=== PATIENT | female | born 1950 | race Caucasian/White ===

== ENCOUNTER 2018-11-10 06:33 | Day surgery (SDC) | payer OTHER ==
[2018-11-10] MEDS: SOD CHLORIDE 0.9% 1,000 ML IV (07:44)
[2018-11-10] MEDS ORDERED: CEFAZOLIN 2 GM/50 ML (PMX) 50 ML IVPB (08:00)
[2018-11-10] MEDS ORDERED: MEPERIDINE 25 MG INJ IV (08:00)
[2018-11-10] MEDS ORDERED: FENTAnyl 50 MCG/ML VIAL IV ×3 (08:00)
[2018-11-10] MEDS ORDERED: CEFAZOLIN 1 GM INJ (08:00)
[2018-11-10] MEDS ORDERED: OXYCODONE/ACETAMINOPHEN (5/325) TAB PO ×2 (08:00)
[2018-11-10] MEDS ORDERED: LIDOCAINE 2% (SDV) 5 ML INJ (08:00)
[2018-11-10] MEDS ORDERED: PROPOFOL 20 ML (08:00)
[2018-11-10] MEDS ORDERED: ONDANSETRON 4 MG INJ IV (08:00)
[2018-11-10] MEDS ORDERED: LABETALOL HCL 20MG INJ IV (08:00)
[2018-11-10] MEDS ORDERED: FENTAnyl 50 MCG/ML VIAL (08:48)
[2018-11-10] MEDS ORDERED: METOCLOPRAMIDE 10 MG INJ (08:49)
[2018-11-10] MEDS ORDERED: FAMOTIDINE 20 MG INJ (08:49)
[2018-11-10] MEDS ORDERED: ONDANSETRON 4 MG INJ (08:49)
[2018-11-10] MEDS: BUPIVACAINE 0.25% (MPF) 30 ML INJ (08:55)
[2018-11-10] MEDS ORDERED: HYDROCODONE/APAP (5/325) TAB PO (10:30)
[2018-11-11] MEDS ORDERED: INFLUENZA VIRUS VACCINE 0.5 ML (DISPENSING) IM* (09:00)
== END 2018-11-10 11:36 | disposition home or self-care (01) ==
LOC: SDS 06:33
DX: D21.0 Benign neoplasm of connective and other soft tissue of head, face and neck (principal); I10 Essential (primary) hypertension; E11.9 Type 2 diabetes mellitus without complications; E78.5 Hyperlipidemia, unspecified; E66.9 Obesity, unspecified
CPT/HCPCS: 14041; 82962; 88307

== ENCOUNTER 2018-11-21 22:30 | Inpatient (IN) | payer OTHER ==
[2018-11-22] MEDS ORDERED: NACL 0.9% 3 ML SYG IV
[2018-11-22] MEDS ORDERED: ONDANSETRON 4 MG INJ IV
[2018-11-22] MEDS ORDERED: ALBUTEROL/IPRATROPIUM (NEB) 3 ML AMP HHN
[2018-11-22] MEDS ORDERED: ACETAMINOPHEN 325 MG TAB PO
[2018-11-22] MEDS ORDERED: HYDROCODONE/APAP (5/325) TAB PO
[2018-11-22] MEDS: PIPER-TAZO 3.375 GM IV (PMX) 100 ML IVPB ×4 (00:32→17:22)
[2018-11-22] MEDS ORDERED: GLUCAGON 1 MG INJ IM (01:30)
[2018-11-22] MEDS ORDERED: GLUCOSE GEL 15 GRAM TUBE PO ×2 (01:30)
[2018-11-22] MEDS ORDERED: GLUCOSE GEL 15 GRAM TUBE BUCCAL (01:30)
[2018-11-22] MEDS ORDERED: DEXTROSE 50% 50 ML SYRINGE IV ×2 (01:30)
[2018-11-22] MEDS: ACCU-CHEK XX (02:00)
[2018-11-22] MEDS ORDERED: DORZOLAMIDE/TIMOLOL/PF 0.2 ML DROPERETTE BOTH EYES (02:00)
[2018-11-22] MEDS: VANCOMYCIN HCL 1.5 GM in SOD CHLORIDE 0.9% 250 ML IVPB (02:14)
[2018-11-22] MEDS: PANTOPRAZOLE (EC) 40 MG TAB PO (05:18)
[2018-11-22 07:10] LABS: ADD MAN DIFF? NO
[2018-11-22 07:13] LABS: BASOPHILS % 0.5 % (0.0-2.0); EOSINOPHILS # 0.4 10^3/ul (0.0-0.5); EOSINOPHILS % 4.4 % (0.0-7.0); HEMATOCRIT 39.2 % (37.0-47.0); HEMOGLOBIN 13.4 g/dl (12.0-16.0); LYMPHOCYTES # 2.4 10^3/ul (0.8-2.9); LYMPHOCYTES % 27.5 % (15.0-51.0); MEAN CORPUSCULAR HEMOGLOBIN 30.7 pg (29.0-33.0); MEAN CORPUSCULAR HGB CONC 34.2 g/dl (32.0-37.0); MEAN CORPUSCULAR VOLUME 89.9 fl (82.0-101.0); MEAN PLATELET VOLUME 9.9 fl (7.4-10.4); MONOCYTE # 0.5 10^3/ul (0.3-0.9); MONOCYTES % 5.2 % (0.0-11.0); NEUTROPHIL # 5.3 10^3/ul (1.6-7.5); NEUTROPHILS % 61.9 % (39.0-77.0); PLATELET COUNT 212 10^3/UL (140-415); RED BLOOD COUNT 4.36 10^6/ul (4.20-5.40); RED CELL DISTRIBUTION WIDTH 11.7 % (11.5-14.5)
[2018-11-22 07:13] LABS: WHITE BLOOD COUNT 8.6 10^3/ul (4.8-10.8)
[2018-11-22 07:40] LABS: ALANINE AMINOTRANSFERASE 19 IU/L (13-69); ALBUMIN 3.9 g/dl (3.3-4.9); ALBUMIN/GLOBULIN RATIO 1.39; ALKALINE PHOSPHATASE 59 IU/L (42-121); ANION GAP 9 (5-13); ASPARTATE AMINO TRANSFERASE 20 IU/L (15-46); BILIRUBIN,INDIRECT 0.2 mg/dl (0-1.1); BILIRUBIN,TOTAL 0.2 mg/dl (0.2-1.3); BLOOD UREA NITROGEN 15 mg/dl (7-20); CALCIUM 9.1 mg/dl (8.4-10.2); CARBON DIOXIDE 23 mmol/L (21-31); CHLORIDE 108 mmol/L (97-110); CHOL/HDL RATIO 2.5 RATIO; CHOLESTEROL 95 mg/dl (100-200); CREATININE 0.53 mg/dl (0.44-1.00); Estimated GFR > 60 mL/min (>60); GLUCOSE 254 mg/dl (70-220); HDL CHOLESTEROL 38 mg/dl (35-98); LDL CHOLESTEROL,CALCULATED 37 mg/dl; PHOSPHORUS 4.1 mg/dl (2.5-4.9); POTASSIUM 4.1 mmol/L (3.5-5.1); SODIUM 140 mmol/L (135-144); TOTAL PROTEIN 6.7 g/dl (6.1-8.1); TRIGLYCERIDES 100 mg/dl (0-149)
[2018-11-22] MEDS: INSULIN ASPART [NOVOLOG] 3 ML PEN SC ×4 (08:03→20:13)
[2018-11-22] MEDS: INSULIN GLARGINE [LANTus] (100 UNITS/ML) SYG SC (08:04)
[2018-11-22] MEDS: LISINOPRIL 20 MG TAB PO (08:59)
[2018-11-22] MEDS: AMLODIPINE 10 MG TAB PO (08:59)
[2018-11-22] MEDS ORDERED: VANCOMYCIN IV PER PHARMACY XX (09:00)
[2018-11-22] MEDS: HYDROCODONE/APAP (5/325) TAB PO (13:50)
[2018-11-22] MEDS ORDERED: VANCOMYCIN 1 GM 250 ML IVPB (17:00)
[2018-11-22] MEDS ORDERED: ATORVASTATIN 40 MG TAB (19:59)
[2018-11-22] MEDS: ATORVASTATIN 40 MG TAB PO (20:12)
[2018-11-22] MEDS: DORZOLAMIDE/TIMOLOL/PF 0.2 ML DROPERETTE BOTH EYES (21:41)
[2018-11-23] MEDS: PIPER-TAZO 3.375 GM IV (PMX) 100 ML IVPB ×4 (00:09→17:10)
[2018-11-23] MEDS: ACCU-CHEK XX (02:00)
[2018-11-23] MEDS: INSULIN ASPART [NOVOLOG] 3 ML PEN SC ×6 (03:23→20:36)
[2018-11-23] MEDS: PANTOPRAZOLE (EC) 40 MG TAB PO (05:23)
[2018-11-23] MEDS: INSULIN GLARGINE [LANTus] (100 UNITS/ML) SYG SC (08:44)
[2018-11-23] MEDS: DORZOLAMIDE/TIMOLOL/PF 0.2 ML DROPERETTE BOTH EYES ×2 (08:47→20:29)
[2018-11-23] MEDS: AMLODIPINE 10 MG TAB PO (08:55)
[2018-11-23] MEDS: LISINOPRIL 20 MG TAB PO (08:55)
[2018-11-23] MEDS ORDERED: LOPERAMIDE HCL 1 MG/5 ML LIQUID (10 ML UD CUP) PO (13:30)
[2018-11-23] MEDS: LACTOBACILLUS RHAMNOSUS CAP PO ×2 (14:19→20:28)
[2018-11-23] MEDS ORDERED: VANCOMYCIN 1 GM 250 ML IVPB (16:00)
[2018-11-23] MEDS: SODIUM HYPOCHLORITE (1/40) 1 APPLIC BTL IRR ×2 (17:14→20:51)
[2018-11-23] MEDS ORDERED: INSULIN LISPRO 100 UNIT/ML VIAL SC (17:30)
[2018-11-23] MEDS: VANCOMYCIN 1 GM 250 ML IVPB (18:22)
[2018-11-23] MEDS: ATORVASTATIN 40 MG TAB PO (20:29)
[2018-11-24] MEDS: PIPER-TAZO 3.375 GM IV (PMX) 100 ML IVPB ×5 (01:32→23:28)
[2018-11-24] MEDS: ACCU-CHEK XX (02:14)
[2018-11-24] MEDS: VANCOMYCIN 1 GM 250 ML IVPB ×2 (06:51→17:43)
[2018-11-24 07:26] LABS: ADD MAN DIFF? NO
[2018-11-24 07:31] LABS: WHITE BLOOD COUNT 8.2 10^3/ul (4.8-10.8)
[2018-11-24 07:31] LABS: BASOPHILS % 0.5 % (0.0-2.0); EOSINOPHILS # 0.4 10^3/ul (0.0-0.5); HEMATOCRIT 40.9 % (37.0-47.0); LYMPHOCYTES # 2.3 10^3/ul (0.8-2.9); LYMPHOCYTES % 28.3 % (15.0-51.0); MEAN CORPUSCULAR HEMOGLOBIN 30.2 pg (29.0-33.0); MEAN CORPUSCULAR HGB CONC 34.2 g/dl (32.0-37.0); MEAN CORPUSCULAR VOLUME 88.1 fl (82.0-101.0); MONOCYTE # 0.5 10^3/ul (0.3-0.9); MONOCYTES % 6.2 % (0.0-11.0); NEUTROPHIL # 4.9 10^3/ul (1.6-7.5); NEUTROPHILS % 59.8 % (39.0-77.0); PLATELET COUNT 212 10^3/UL (140-415); RED BLOOD COUNT 4.64 10^6/ul (4.20-5.40); RED CELL DISTRIBUTION WIDTH 11.8 % (11.5-14.5)
[2018-11-24 07:48] LABS: INR 0.93; PROTIME 12.6 Sec (11.9-14.9)
[2018-11-24] MEDS: LISINOPRIL 20 MG TAB PO (08:18)
[2018-11-24] MEDS: LACTOBACILLUS RHAMNOSUS CAP PO ×2 (08:18→20:54)
[2018-11-24] MEDS: DORZOLAMIDE/TIMOLOL/PF 0.2 ML DROPERETTE BOTH EYES ×2 (08:18→20:54)
[2018-11-24] MEDS: AMLODIPINE 10 MG TAB PO (08:18)
[2018-11-24 08:20] LABS: ALANINE AMINOTRANSFERASE 29 IU/L (13-69); ALBUMIN 3.8 g/dl (3.3-4.9); ALBUMIN/GLOBULIN RATIO 1.22; ALKALINE PHOSPHATASE 62 IU/L (42-121); ANION GAP 12 (5-13); ASPARTATE AMINO TRANSFERASE 21 IU/L (15-46); BILIRUBIN,INDIRECT 0.4 mg/dl (0-1.1); BILIRUBIN,TOTAL 0.4 mg/dl (0.2-1.3); BLOOD UREA NITROGEN 12 mg/dl (7-20); CALCIUM 8.9 mg/dl (8.4-10.2); CARBON DIOXIDE 24 mmol/L (21-31); CHLORIDE 106 mmol/L (97-110); CREATININE 0.56 mg/dl (0.44-1.00); Estimated GFR > 60 mL/min (>60); GLUCOSE 269 mg/dl (70-220); POTASSIUM 4.3 mmol/L (3.5-5.1); SODIUM 142 mmol/L (135-144); TOTAL PROTEIN 6.9 g/dl (6.1-8.1)
[2018-11-24] MEDS: INSULIN ASPART [NOVOLOG] 3 ML PEN SC ×7 (08:20→20:57)
[2018-11-24] MEDS: INSULIN GLARGINE [LANTus] (100 UNITS/ML) SYG SC (08:21)
[2018-11-24 08:22] LABS: PHOSPHORUS 3.8 mg/dl (2.5-4.9)
[2018-11-24 08:22] LABS: MAGNESIUM 2.1 mg/dl (1.7-2.5)
[2018-11-24] MEDS: SODIUM HYPOCHLORITE (1/40) 1 APPLIC BTL IRR (08:22)
[2018-11-24 08:41] LABS: THYROID STIMULATING HORMONE 0.346 MIU/L (0.465-4.680)
[2018-11-24] MEDS: ATORVASTATIN 40 MG TAB PO (20:54)
[2018-11-25] MEDS: ACCU-CHEK XX (02:00)
[2018-11-25] MEDS: PIPER-TAZO 3.375 GM IV (PMX) 100 ML IVPB ×3 (05:24→17:39)
[2018-11-25] MEDS: VANCOMYCIN 1 GM 250 ML IVPB (05:30)
[2018-11-25 05:39] LABS: VANCOMYCIN,TROUGH 7.7 ug/ml (10.0-20.0)
[2018-11-25] MEDS: VANCOMYCIN HCL 1.5 GM in SOD CHLORIDE 0.9% 250 ML IVPB (06:30)
[2018-11-25] MEDS: AMLODIPINE 5 MG TAB PO (08:21)
[2018-11-25] MEDS: LISINOPRIL 10 MG TAB PO (08:21)
[2018-11-25] MEDS: LACTOBACILLUS RHAMNOSUS CAP PO ×2 (08:21→20:41)
[2018-11-25] MEDS: INSULIN ASPART [NOVOLOG] 3 ML PEN SC ×7 (08:22→20:42)
[2018-11-25] MEDS: INSULIN GLARGINE [LANTus] (100 UNITS/ML) SYG SC (08:23)
[2018-11-25] MEDS: DORZOLAMIDE/TIMOLOL/PF 0.2 ML DROPERETTE BOTH EYES ×2 (08:24→20:42)
[2018-11-25] MEDS: ENOXAPARIN 40 MG/0.4 ML SYG SC (11:05)
[2018-11-25] MEDS: VANCOMYCIN HCL 1.25 GM in SOD CHLORIDE 0.9% 250 ML IVPB (17:39)
[2018-11-25] MEDS ORDERED: VANCOMYCIN HCL 1.5 GM in SOD CHLORIDE 0.9% 250 ML IVPB (18:00)
[2018-11-25] MEDS: ATORVASTATIN 40 MG TAB PO (20:41)
== END 2018-11-25 20:50 | disposition home or self-care (01) | DRG 863 ==
LOC: 5EC 22:30
PROVIDERS: Internal Medicine
DX: T81.49XA Infection following a procedure, other surgical site, initial encounter (principal); E11.65 Type 2 diabetes mellitus with hyperglycemia; E88.81 Metabolic syndrome and other insulin resistance; Z86.73 Personal history of transient ischemic attack (TIA), and cerebral infarction without residual deficits; Z87.891 Personal history of nicotine dependence; B96.89 Other specified bacterial agents as the cause of diseases classified elsewhere
CPT/HCPCS: 80053; 80061; 80202; 82962; 83036; 83735; 84100; 84443; 85025; 85610; 87070; 87081